=== PATIENT | female | born 1970 | race Two or more races ===

== ENCOUNTER 2019-09-05 13:50 | Outpatient (CLI) | payer OTHER | END 2019-09-05 14:05 | disposition home or self-care (01) | LOC: MRI 13:50 | PROVIDERS: ATTEND Physical Medicine & Rehabilitation | DX: M23.031 Cystic meniscus, other medial meniscus, right knee (principal) | CPT/HCPCS: 73718 ==

== ENCOUNTER 2019-10-26 11:30 | Outpatient (CLI) | payer OTHER | END 2019-10-26 11:34 | disposition home or self-care (01) | LOC: NUCLEAR 11:30 | PROVIDERS: ATTEND General Practice | DX: M85.89 Other specified disorders of bone density and structure, multiple sites (principal) ==